=== PATIENT | female | born 1945 | race Caucasian/White ===

== ENCOUNTER 2020-09-28 07:12 | Day surgery (SDC) | payer BC ==
[2020-09-21 17:00] LABS: CLARITY,URINE SLIGHTLY CLOUDY (Clear); COLOR,URINE YELLOW (Yellow); GLUCOSE, URINE NEGATIVE (Neg); KETONES,URINE TRACE mg/dl (Neg); LEUKOCYTE ESTERASE ,URINE NEGATIVE (Neg); NITRITES, URINE NEGATIVE (Neg); OCCULT BLOOD,URINE NEGATIVE (Neg); PROTEIN,URINE NEGATIVE (Neg); UROBILINOGEN,URINE 0.2 E.U/dL (0.2-1.0)
[2020-09-21 17:07] LABS: BASOPHILS % (AUTO) 0.2 % (0-1); EOSINOPHILS # (AUTO) 0.1 X10'3 (0-0.9); EOSINOPHILS % (AUTO) 0.4 % (0-6); LYMPHOCYTES # (AUTO) 3.6 X10'3 (1.1-4.8); MEAN CORPUSCULAR HEMOGLOBIN 30.2 PG (27.0-31.0); MEAN CORPUSCULAR HGB CONC 33.5 g/dL (33.0-36.5); MEAN CORPUSCULAR VOLUME 90.1 FL (78-98); MEAN PLATELET VOLUME 8.7 FL (7.4-10.4); MONOCYTES # (AUTO) 0.7 X10'3 (0-0.9); MONOCYTES % (AUTO) 4.8 % (2-12); NEUTROPHILS # (AUTO) 11.1 X10'3 (1.8-7.7); NEUTROPHILS % (AUTO) 71.6 % (42-75); PRE OP HEMATOCRIT 48.3 % (35.0-45.0); PRE OP HEMOGLOBIN 16.2 g/dL (12.0-16.0); PRE OP PLATELET COUNT 389 X10'3 (140-440); RED BLOOD COUNT 5.36 X10'6 (4.20-5.60); RED CELL DISTRIBUTION WIDTH 15.2 % (11.5-14.5)
[2020-09-21 17:21] LABS: ALBUMIN 4.2 G/DL (3.4-5.0); ALBUMIN/GLOBULIN RATIO 1.1 (1.1-1.5); ALKALINE PHOSPHATASE 118 IU/L (46-116); BLOOD UREA NITROGEN 21 MG/DL (7-18); BUN/CREATININE RATIO 28.4 (6.6-38.0); CALCIUM 9.8 MG/DL (8.5-10.1); CHLORIDE 100 MMOL/L (99-107); CREATININE 0.74 MG/DL (0.40-0.90); PRE OP ALT 78 U/L (30-65); PRE OP ANION GAP 14 (8-16); PRE OP AST 51 U/L (10-37); PRE OP BILIRUB, TOTAL 0.6 MG/DL (0.0-1.0); PRE OP POTASSIUM 3.7 MMOL/L (3.4-5.1); PRE OP SODIUM 141 MMOL/L (135-145); TOTAL CARBON DIOXIDE 26.9 MMOL/L (24-32); eGFR 77 ML/MIN
[2020-09-21 17:26] LABS: PRE OP GLUCOSE 217 MG/DL (70-104)
[2020-09-21 17:56] LABS: UA COLLECTION TYPE CLN CATCH MIDSTREAM
[2020-09-21 17:57] LABS: MUCUS STRANDS MODERATE /LPF (Neg); SQUAMOUS EPITHELIAL CELL,UR MODERATE /LPF (FEW)
[2020-09-21 17:58] LABS: BACTERIA,URINE FEW /HPF (Neg)
[2020-09-21 17:59] LABS: RBC,URINE 0-2 /HPF (0-2); WBC,URINE 0-4 /HPF (0-4)
[2020-09-28] VITALS (11 sets, daily range): BP systolic 104–158; BP diastolic 45–79
[~2020-09-28] VITALS: Ht 162.6 cm; Wt 88.8 kg
[~2020-09-28 07:12] MED LIST: ATOR10TA70 PO; DICL100G30 TOP; DILT-35 PO; DOCUMENT DATE & TIME OF BETA-BLOCKER PO ONE; DULO30CA52 PO; GLIP10TA11 PO; HYDR25TA4 PO; LEVO100T9 PO; LOSA100T57 PO; METO-384 PO; OMEP-50 PO; OXYC1TAB17 PO; PIOG15TA8 PO; POTA-82 PO; PRAM1.5T7 PO; SEMA0.25 SQ; ZOLP5TAB8 PO; cefazolin/dext.iso 2gm/100ml 100 ML IV ONE; famotidine 20mg tablet PO ONE; ringers solution, lacted 1,000 ML IV SCH
[2020-09-28] MEDS ORDERED: BUPIVAcaine/PF 2.5 mg/ml (0.25%) 30ml vial ONE (08:25)
[2020-09-28] MEDS ORDERED: sevoflurane 250ml liquid IH ONE (10:24)
[2020-09-28] MEDS ORDERED: midazolam 1 mg/ML 2ml injection ONE (10:28)
[2020-09-28] MEDS ORDERED: fentaNYL /PF 50mcg/ml 5ml ampule ONE (10:29)
[2020-09-28] MEDS ORDERED: rocuronium 10mg/ml inj IV ONE (11:03)
[2020-09-28] MEDS ORDERED: 0.9 % SODIUM CHLORIDE 10 ML VIAL ONE (11:03)
[2020-09-28] MEDS ORDERED: LIDOcaine 2% (20mg/ml) 5ml vial ONE (11:03)
[2020-09-28] MEDS ORDERED: propofol inj 20 ML IV ONE (11:03)
[2020-09-28] MEDS ORDERED: ePHEDrine 50MG/ML INJ. ONE (11:03)
[2020-09-28] MEDS ORDERED: dexamethasone sod phosphate 4mg/ml inj. ONE (11:11)
[2020-09-28] MEDS ORDERED: LIDOcaine 2% 5ml jelly ONE (11:12)
[2020-09-28] MEDS ORDERED: ondansetron/PF 4mg/2ml inj ONE (11:12)
[2020-09-28] MEDS ORDERED: glycopyrrolate 0.2mg/ml inj ONE (11:37)
[2020-09-28] MEDS ORDERED: neostigmine methylsulfate 1 MG/ML 10ml vial ONE (11:37)
--- NOTE | 2020-09-28 11:50 | NUR ---
Received from OR via BED , accompanied by Anesthesiologist DR MÉNDEZ and report given by Anesthesiolgist. PATIENT WAKING UP, DENIES PAIN, V/S WNL, NEUROVASCULAR CHECKS INTACT, 20G PIV RUE, SCD ON, DERMABONDED X3 LAP SIGHTS OF ABDOMEN CDI.
[2020-09-28] MEDS ORDERED: ondansetron/PF 4mg/2ml inj IV PRN ×2 (12:00→12:05)
[2020-09-28] MEDS ORDERED: morphine 4 MG/ML inj SYRINge IV PRN ×2 (12:00→12:05)
[2020-09-28] MEDS ORDERED: meperidine/PF 25mg/ml syringe IV PRN (12:00)
[2020-09-28] MEDS ORDERED: ringers solution, lacted 1,000 ML IV SCH ×2 (12:00→12:05)
[2020-09-28] MEDS ORDERED: meperidine/PF 25mg/ml syringe ONE (12:04)
[2020-09-28] MEDS ORDERED: oxyCODONE/APAP 10/325mg tablet PO ONE (12:05)
[2020-09-28] MEDS ORDERED: proCHLORperazine 10 MG/2 ml inj IV PRN (12:05)
[2020-09-28] MEDS ORDERED: morphine 2 MG/ML inj. syringe IV PRN (12:05)
[2020-09-28] MEDS ORDERED: hydrALAZINE 20mg/ml inj. IV PRN (12:05)
[2020-09-28] MEDS ORDERED: labetalol 20mg/4ml (5mg/ml) syringe IV PRN (12:05)
[2020-09-28] MEDS ORDERED: acetaminophen 1,000mg/100ml IV 100 ML IV PRN (12:05)
[2020-09-28] MEDS ORDERED: HYDROmorphone/PF 0.2 MG/ML SYRINGE IV PRN (12:05)
--- NOTE | 2020-09-28 12:08 | NUR ---
DEMEROL OVERIDE, NO PAIN MEDS ORDERED AND PATIENT IN PAIN, VERBAL ORDER BY DR MÉNDEZ GIVEN
[2020-09-28] MEDS: HYDROmorphone/PF 0.2 MG/ML SYRINGE IV PRN ×2 (12:45→12:59)
--- NOTE | 2020-09-28 13:06 | NUR ---
PATIENT GIVEN ALL AVAILABLE MEDS FOR PAIN AND SHE IS STILL COMPLAINING OF PAIN BUT IS STARTING TO DESAT. I TOLD HER WE HAVE TO GET HER UP AND MOVE HER AROUND AND SEE IF THAT HELPS BECAUSE NOTHING ELSE IS WORKING AND IF SHE IS UNABLE SHE MAY NEED TO BE ADMITTED. SHE AGREES TO THIS PLAN OF ACTION/
--- NOTE | 2020-09-28 13:20 | NUR ---
PATIENT A&OX4, STATES PAIN WELL CONTROLLED NOW, V/S WNL, NEUROVASCULAR CHECKS INTACT, 20G PIV LUE D/C, SCD OFF, 3 LAP SIGHTS OF ABDOMEN CDI. PATIENT HAS VOIDED AND WAS ADVISED TO USE CPAP WHEN SHE GETS HOME AND I REINFORCED THIS WITH HER , SCRIPTS AT [facility] IN [place] PER SALINA ALEMAN, I HAVE REVIEWED D/C INSTRUCTIONS WITH PATIENT AND FAMILY AND THEY HAVE VERBALIZED UNDERSTANDING. PATIENT D/C HOME WITH ALL BELONGINGS AND FAMILY GAVE TRANSPORT HOME.
== END 2020-09-28 13:20 | disposition home or self-care (01) ==
LOC: PAS 07:12
PROVIDERS: ATTEND Surgery
DX: K40.30 Unilateral inguinal hernia, with obstruction, without gangrene, not specified as recurrent (principal); D17.79 Benign lipomatous neoplasm of other sites; F32.9 Major depressive disorder, single episode, unspecified; E03.9 Hypothyroidism, unspecified; M19.90 Unspecified osteoarthritis, unspecified site; E11.9 Type 2 diabetes mellitus without complications; G47.30 Sleep apnea, unspecified; I10 Essential (primary) hypertension; Z79.899 Other long term (current) drug therapy; Z90.710 Acquired absence of both cervix and uterus; Z90.49 Acquired absence of other specified parts of digestive tract; Z90.721 Acquired absence of ovaries, unilateral; Z98.890 Other specified postprocedural states
CPT/HCPCS: 36415; 49650; 80053; 81001; 82948; 85025; C1758; C1781; J0131; J1100; J1170; J2001; J2175; J2250; J2270; J2405; J2704; J2710; J3010; J3490; A4215; A4618; J7120

== ENCOUNTER 2024-01-13 08:39 | Outpatient (CLI) | payer BC ==
[~2024-01-13 08:39] MED LIST changes: -DICL100G30 TOP; +DICL100G59 TOP; -DOCUMENT DATE & TIME OF BETA-BLOCKER PO ONE; -LOSA100T57 PO; +LOSA100T58 PO; -OMEP-50 PO; +OMEP20CA16 PO; +POTA-366 PO; -POTA-82 PO; -cefazolin/dext.iso 2gm/100ml 100 ML IV ONE; -famotidine 20mg tablet PO ONE; -ringers solution, lacted 1,000 ML IV SCH
[2024-01-13 09:53] LABS: ALBUMIN 3.7 G/DL (3.4-5.0); ANION GAP 11 (8-16); BLOOD UREA NITROGEN 14 MG/DL (7-18); BUN/CREATININE RATIO 17.5 (10.0-20.0); CALCIUM 9.5 MG/DL (8.5-10.1); CHLORIDE 102 MMOL/L (99-107); GLUCOSE 150 MG/DL (70-104); POTASSIUM 4.1 MMOL/L (3.5-5.1); SODIUM 140 MMOL/L (135-145); TOTAL CARBON DIOXIDE 27.4 MMOL/L (24-32); eGFR 70 ML/MIN
[2024-01-13] MEDS ORDERED: iohexol 350 MG/ML 50ML vial IV ONE (10:38)
[2024-01-13] MEDS ORDERED: iohexol 350MG/ML 100ml bottle IV ONE (10:38)
== END 2024-01-13 23:59 | disposition home or self-care (01) ==
LOC: 64 CT 08:39
PROVIDERS: ATTEND Surgery
DX: I73.9 Peripheral vascular disease, unspecified (principal); I70.0 Atherosclerosis of aorta; Z90.49 Acquired absence of other specified parts of digestive tract
CPT/HCPCS: 36415; 75635; 80048; Q9967